=== PATIENT | male | born 1950 | race African-American/Black ===

== ENCOUNTER 2019-03-26 17:05 | Inpatient (IN) ==
[2019-03-26] MEDS ORDERED: NS 1,000 ML ONE (17:16)
[2019-03-26] MEDS ORDERED: NS 1,000 ML IV ONE ×3 (17:18→20:04)
[2019-03-26 17:40] LABS: BE -3.9 mmoll (-3.0-3.0); BLOOD TYPE ARTERIAL; HCO3-(ACT) 21.9 mmoll (20.0-26.0); METHB 1.4 % (0.0-1.5); O2HB 95.2 % (95.0-99.0); PCO2(98.6) 35 mmHg (35-45); PO2(98.6) 84 mmHg (60-100); SAMPLE BLOOD; SAO2 98.7 % (95.0-100.0); THB 9.6 g/dL (11.5-17.4); pH(98.6) 7.38 (7.35-7.45)
[2019-03-26 17:41] LABS: ALLEN TEST YES; MODALITY ROOM AIR
[2019-03-26 17:42] LABS: BASO# 0.08 X1000 (0.0-0.2); BASO% 0.7 % (0.0-0.8); EOS# 0.31 X1000 (0.0-0.7); EOS% 2.6 % (0.0-10.0); HEMATOCRIT 28.5 % (42.0-52.0); HEMOGLOBIN 9.2 g/dL (14.0-18.0); IMM GRAN# 0.04 X1000 (0.0-0.04); IMM GRAN% 0.3 % (0.0-0.5); LYMPH# 1.67 X1000 (1.2-3.4); LYMPH% 13.8 % (20.5-51.1); MCH 27.1 PG (27-31); MCHC 32.3 g/dL (33-37); MCV 84.1 FL (81-99); MONO# 1.04 X1000 (0.11-0.59); MONO% 8.6 % (1.7-9.3); MPV 11.8 FL (7.4-10.4); NEUT# 8.99 X1000 (1.4-6.5); PLT 257 X1000 (130-400); RBC 3.39 XMIL (4.7-6.1); RDW 16.3 % (11.5-14.5); WBC 12.13 X1000 (4.8-10.8)
[2019-03-26 17:53] LABS: INR 1.08; PROTIME 14.6 Seconds (11.0-16.0); PTT 32.2 Seconds (22.3-41.8)
--- NOTE | 2019-03-26 17:56 | EKG Report ---
Test Performed on : 03/26/2019 5:18:23 PM Test Reason : hypotensive altmental Blood Pressure : / mmHG Vent. Rate : 054 BPM Atrial Rate : 054 BPM P-R Int : 134 ms QRS Dur : 094 ms QT Int : 506 ms P-R-T Axes : 074 071 073 degrees QTc Int : 479 ms Sinus bradycardia. Moderate voltage criteria for LVH, may be normal variant Borderline ECG When compared with ECG of 05-OCT-2018 10:14, T wave inversion no longer evident in Inferior leads T wave inversion no longer evident in Lateral leads Unconfirmed Result
--- NOTE | 2019-03-26 17:59 | Diag Imaging Result Doc PS360 ---
EXAM: CT HEAD W/O CONTRAST 03/26/2019 HISTORY: AMS TECHNIQUE: This exam was performed using automated exposure control, adjustment of mA or kV according to patient size, and/or use of iterative reconstruction technique. COMMENT: There is no evidence of mass effect, bleed, or abnormal extra-axial fluid collection. There is encephalomalacia in the lateral basal ganglia region and periventricular white matter of the right frontal lobe. There are tiny lacunae present near the internal capsule posterior limbs bilaterally. Compared to the previous examination of 09/16/2018 there has been no significant change. IMPRESSION: No acute ischemic changes. No evidence of acute disease. Electronically signed by Zan Harding 03/26/2019 5:57 PM
[2019-03-26 18:04] LABS: ALBUMIN 3.8 g/dL (3.5-5.0); CALCIUM 9.1 mg/dL (8.8-10.2); CREATININE 1.9 mg/dL (0.7-1.2); POTASSIUM 4.9 mmol/L (3.5-5.1); TOTAL BILIRUBIN 0.2 mg/dL (0.20-1.00); TOTAL PROTEIN 6.6 g/dL (6.3-8.3)
--- NOTE | 2019-03-26 18:35 | Diag Imaging Result Doc PS360 ---
EXAM: CHEST-PORTABLE 03/26/2019 HISTORY: altered mental hypotensive TECHNIQUE: Erect AP portable at 1803 COMMENT: There is increasing left pleural effusion and some right pleural effusion compared to 10/05/2018. There is also retrocardiac opacity in the left lower lobe. IMPRESSION: Left lower lobe pneumonia. Bilateral pleural effusions more so on the left than the right. Electronically signed by Zan Harding 03/26/2019 6:32 PM
--- NOTE | 2019-03-26 18:53 | PROVIDER DOCUMENTATION ---
This chart was entered by Nakita Gastelum Scribe, acting as scribe for Naveed Pleitez MD. HPI-General Adult - General Source: patient - History of Present Illness -Gen Adult Nature of Presenting Problems: 69 year old male presents to the ER with low blood pressure. Son states that he drank half a beer and began to decline rapidly. Started slurring speech and became lethargic. Onset/Duration: reports: just prior to arrival Timing: reports: still present Associated Symptoms: reports: weakness, other (low blood pressure) <Naveed Pleitez - Last Filed: 03/26/19 18:53> <Jewel Hawkins - Last Filed: 03/26/19 20:03> - General Chief Complaint: Altered Mental Status Stated Complaint: BP LOW Time Seen by Provider: 03/26/19 17:39 Allergies/Adverse Reactions: Patient Allergies Allergy/AdvReac Type Severity Reaction Status Date / Time No Known Allergies Allergy Verified 03/26/19 17:26 Home Medications: Home Medication List Medication Instructions Recorded Confirmed Last Taken Type Aspirin 325 mg PO DAILY 07/08/15 10/05/18 10/06/18 06:15 History Cilostazol 100 mg PO BID 07/08/15 10/06/18 10/06/18 06:15 History Lisinopril/Hydrochlorothiazide 1 each PO DAILY 07/08/15 10/05/18 10/06/18 06:15 History [Lisinopril-Hctz 20-12.5 mg Tab] Nifedipine E.r. [Adalat cc] 30 mg PO DAILY 07/08/15 10/05/18 10/06/18 06:15 History Cyanocobalamin (Vitamin B-12) 1,000 mcg PO TH 10/05/18 10/05/18 10/06/18 06:15 History [Vitamin B-12] Review of Systems - Adult - REVIEW OF SYSTEMS - ADULT Constitutional: denies: chills, fever Eyes: reports: no symptoms reported Ears, Nose, Mouth & Throat: reports: no symptoms reported Cardiovascular: reports: irregular heart rate. denies: chest pain Respiratory: reports: shortness of breath. denies: cough Gastrointestinal: reports: no symptoms reported Genitourinary: reports: no symptoms reported Musculoskeletal: reports: no symptoms reported Integumentary: reports: no symptoms reported Neurological: reports: loss of balance, slurred speech Psychiatric: reports: no symptoms reported Endocrine: reports: no symptoms reported Hematologic/Lymphatic: reports: no symptoms reported Allergic/Immunologic: reports: no symptoms reported All Other Systems: Reviewed and Negative <Naveed Pleitez - Last Filed: 03/26/19 18:53> Past History - Adult - PAST MEDICAL HISTORY-ADULT Review of Records: reports: Nursing Assessment Review, Medications Reviewed Major Childhood Illnesses: reports: denies history Cardiovascular: reports: HTN Respiratory: reports: denies history Gastrointestinal: reports: denies history Genitourinary: reports: denies history Musculoskeletal: reports: denies history Neurological: reports: denies history Psychiatric: reports: denies history Endocrine/Immune: reports: denies history Other Conditions: reports: denies history - PRIOR SURGERIES/PROCEDURES Surgical/Procedure History: reports: CABG - IMMUNIZATION STATUS Childhood Immunizations: See Nurse Assessment Flu Vaccine: See Nurse Assessment - FAMILY HISTORY Family History: reviewed, not pertinent <Naveed Pleitez - Last Filed: 03/26/19 18:53> Physical Exam-General - PHYSICAL EXAM-ADULT Initial Vital Signs Reviewed: Yes - CONSTITUTIONAL General Appearance: mild distress, lethargic, slow to respond - EYES Eyes: PERRL/EOMI, pink conjunctivae - HEAD, EARS, NOSE, MOUTH & THROAT HENMT: normocephalic/atraumatic, moist mucous membranes, normal ENT inspection - NECK Neck: non-tender, normal inspection - RESPIRATORY Respiratory: lungs clear, normal breath sounds - CARDIOVASCULAR Cardiovascular: bradycardia - MUSCULOSKELETAL Back Exam: no CVA tenderness, no vertebral tenderness Extremity: non-tender, normal inspection - SKIN Integumentary: normal color, warm/dry - NEUROLOGIC Neurologic: grossly normal - PSYCHIATRIC Psych/Mental Status: normal mood/affect, normal thought content, normal thought process, oriented x 3 <Naveed Pleitez - Last Filed: 03/26/19 18:53> Progress - PLAN OF CARE/RESULTS Progress/Plan/Lab Results: Vital Signs - 8 hr 03/26/19 17:09 03/26/19 17:19 Temperature 97.6 F Pulse Rate 55 L 57 L Respiratory Rate 18 24 Blood Pressure 66/38 101/45 O2 Sat by Pulse Oximetry 95 93 L Laboratory Results - last 24 hr 03/26/19 17:18 POC Glucose 108 H Orders Category Date Time Status Cardiac Monitoring DIRECTED Care 03/26/19 17:14 Active Finger Stick Blood Sugar (ED) DIRECTED Care 03/26/19 17:14 Active Oxygen Therapy- ED Nursing DIRECTED Care 03/26/19 17:14 Active Saline Loc NOW Care 03/26/19 17:14 Active CHEST-PORTABLE [RAD] Stat Exams 03/26/19 17:[address] HEAD W/O CONTRAST [CT] Stat Exams 03/26/19 17:[address] HEAD W/O CONTRAST [CT] Stat Exams 03/26/19 17:31 Ordered ABG [RESP] Routine Lab 03/26/19 17:14 Ordered CBC WITH ELECTRONIC DIFF [HEME] Stat Lab 03/26/19 17:28 Results CK PROFILE [SP CHEM] Stat Lab 03/26/19 17:28 Received COMPREHENSIVE METABOLIC PANEL [CHEM] Stat Lab 03/26/19 17:28 Received LACTATE, PLASMA [CHEM] Stat Lab 03/26/19 17:28 Received PROTIME WITH INR [COAG] Stat Lab 03/26/19 17:28 Received PTT [COAG] Stat Lab 03/26/19 17:28 Received TROPONIN T Stat Lab 03/26/19 17:28 Received URINALYSIS [URINALYSIS] Stat Lab 03/26/19 17:14 Uncollected 0.9% Sodium Chloride Inj [Ns] 1,000 ml Med 03/26/19 17:16 Discontinued .ROUTE As directed 0.9% Sodium Chloride Inj [Ns] 1,000 ml Med 03/26/19 17:18 Active IV 999 mls/hr Altered Mental Status Stat Oth 03/26/19 17:13 Ordered EKG [EKG] Stat Ther 03/26/19 17:14 Ordered Result Diagrams: 03/26/19 17:28 03/26/19 17:28 - EKG 1 Time of EKG reading by physician:: 17:43 EKG Read and Signed by:: Naveed Pleitez EKG Interpretation (*Must complete 3 of following elements*): Normal Rate: 54 Rhythm: sinus bradycardia QRS: LVH (moderate voltage criteria) Comments: borderline ECG - XRAY 1 XRAY Study: Chest Impression: Abnormal (effusions/cardiomegaly) - CT/MRI 1 CT Study: Head Impression: Normal <Naveed Pleitez - Last Filed: 03/26/19 18:53> - PLAN OF CARE/RESULTS Progress/Plan/Lab Results: Vital Signs - 8 hr 03/26/19 17:09 03/26/19 17:19 Temperature 97.6 F Pulse Rate 55 L 57 L Respiratory Rate 18 24 Blood Pressure 66/38 101/45 O2 Sat by Pulse Oximetry 95 93 L Laboratory Results - last 24 hr 03/26/19 03/26/19 03/26/19 17:18 17:20 17:28 WBC 12.13 H RBC 3.39 L Hgb 9.2 L Hct 28.5 L MCV 84.1 MCH 27.1 MCHC 32.3 L RDW Std Deviation 16.3 H Plt Count 257 MPV 11.8 H Immature Gran % (Auto) 0.3 Neut % (Auto) 74.0 Lymph % (Auto) 13.8 L King % (Auto) 8.6 Eos % (Auto) 2.6 Baso % (Auto) 0.7 Immature Gran # (Auto) 0.04 Neut # (Auto) 8.99 H Lymph # (Auto) 1.67 King # (Auto) 1.04 H Eos # (Auto) 0.31 Baso # (Auto) 0.08 PT INR PTT (Actin FS) Specimen Type ARTERIAL Sample Site R RADIAL pH 7.38 pCO2 35 pO2 84 HCO3 21.9 Base Excess -3.9 L Oxyhemoglobin 95.2 ABG O2 Sat (Calculated) 13.0 L ABG O2 Saturation 98.7 ABG Carboxyhemoglobin 2.10 ABG Methemoglobin 1.4 Kevan Test YES A-a O2 Difference 22.0 Total Hemoglobin 9.6 L Lactate 0.60 Blood Gas Modality ROOM AIR FiO2 % 21.0 Sodium Potassium Chloride Carbon Dioxide Anion Gap BUN Creatinine Estimated GFR/1.73 m2 BUN/Creatinine Ratio Glucose POC Glucose 108 H Calculated Osmolality Calcium Total Bilirubin AST ALT Alkaline Phosphatase Creatine Kinase Troponin T Zox-P-Aopbpfbnnzz Pept Total Protein Albumin Globulin Albumin/Globulin Ratio Plasma Lactate Plasma/Serum Ethyl Alc 03/26/19 03/26/19 03/26/19 17:28 17:28 17:28 WBC RBC Hgb Hct MCV MCH MCHC RDW Std Deviation Plt Count MPV Immature Gran % (Auto) Neut % (Auto) Lymph % (Auto) King % (Auto) Eos % (Auto) Baso % (Auto) Immature Gran # (Auto) Neut # (Auto) Lymph # (Auto) King # (Auto) Eos # (Auto) Baso # (Auto) PT 14.6 INR 1.08 PTT (Actin FS) 32.2 Specimen Type Sample Site pH pCO2 pO2 HCO3 Base Excess Oxyhemoglobin ABG O2 Sat (Calculated) ABG O2 Saturation ABG Carboxyhemoglobin ABG Methemoglobin Kevan Test A-a O2 Difference Total Hemoglobin Lactate Blood Gas Modality FiO2 % Sodium 139 Potassium 4.9 Chloride 106 Carbon Dioxide 19 L Anion Gap 15 BUN 60 H Creatinine 1.9 H Estimated GFR/1.73 m2 35 BUN/Creatinine Ratio 32 Glucose 116 H POC Glucose Calculated Osmolality 295 Calcium 9.1 Total Bilirubin 0.20 AST 11 ALT 5 L Alkaline Phosphatase 117 Creatine Kinase 23 L Troponin T Oea-U-Zkoctpeyger Pept Total Protein 6.6 Albumin 3.8 Globulin 3.0 Albumin/Globulin Ratio 1.0 Plasma Lactate 1.1 Plasma/Serum Ethyl Alc 03/26/19 03/26/19 03/26/19 17:28 17:28 17:28 WBC RBC Hgb Hct MCV MCH MCHC RDW Std Deviation Plt Count MPV Immature Gran % (Auto) Neut % (Auto) Lymph % (Auto) King % (Auto) Eos % (Auto) Baso % (Auto) Immature Gran # (Auto) Neut # (Auto) Lymph # (Auto) King # (Auto) Eos # (Auto) Baso # (Auto) PT INR PTT (Actin FS) Specimen Type Sample Site pH pCO2 pO2 HCO3 Base Excess Oxyhemoglobin ABG O2 Sat (Calculated) ABG O2 Saturation ABG Carboxyhemoglobin ABG Methemoglobin Kevan Test A-a O2 Difference Total Hemoglobin Lactate Blood Gas Modality FiO2 % Sodium Potassium Chloride Carbon Dioxide Anion Gap BUN Creatinine Estimated GFR/1.73 m2 BUN/Creatinine Ratio Glucose POC Glucose Calculated Osmolality Calcium Total Bilirubin AST ALT Alkaline Phosphatase Creatine Kinase Troponin T < 0.010 Daj-F-Sxtdluhgakx Pept 1229 H Total Protein Albumin Globulin Albumin/Globulin Ratio Plasma Lactate Plasma/Serum Ethyl Alc Orders Category Date Time Status Cardiac Monitoring DIRECTED Care 03/26/19 17:14 Active Finger Stick Blood Sugar (ED) DIRECTED Care 03/26/19 17:14 Active Oxygen Therapy- ED Nursing DIRECTED Care 03/26/19 17:14 Active Saline Loc NOW Care 03/26/19 17:14 Active CHEST-PORTABLE [RAD] Stat Exams 03/26/19 17:[address] HEAD W/O CONTRAST [CT] Stat Exams 03/26/19 17:31 Completed ABG [RESP] Routine Lab 03/26/19 17:20 Completed ALCOHOL BLOOD Stat Lab 03/26/19 17:28 Completed CBC WITH ELECTRONIC DIFF [HEME] Stat Lab 03/26/19 17:28 Completed CK PROFILE [SP CHEM] Stat Lab 03/26/19 17:28 Completed COMPREHENSIVE METABOLIC PANEL [CHEM] Stat Lab 03/26/19 17:28 Completed LACTATE, PLASMA [CHEM] Stat Lab 03/26/19 17:28 Completed PROTIME WITH INR [COAG] Stat Lab 03/26/19 17:28 Completed PTT [COAG] Stat Lab 03/26/19 17:28 Completed TROPONIN T Stat Lab 03/26/19 17:[address] W/POSS RFLX CULT [URINALYSIS] Stat Lab 03/26/19 18:36 Uncollected URINALYSIS [URINALYSIS] Stat Lab 03/26/19 17:14 Uncollected URINE DRUG SCREEN PL Stat Lab 03/26/19 18:35 Uncollected bnp [PRO B-NATRIURETIC PEPTIDE] Stat Lab 03/26/19 17:28 Completed 0.9% Sodium Chloride Inj [Ns] 1,000 ml Med 03/26/19 17:16 Discontinued .ROUTE As directed 0.9% Sodium Chloride Inj [Ns] 1,000 ml Med 03/26/19 17:18 Discontinued IV 999 mls/hr CefTRIAXONE [Rocephin] 1 gm Med 03/26/19 19:55 Active 0.9% Sodium Chloride Inj [Ns] 50 ml IV NOW Ns 1000 ml IV Bolus X1 Med 03/26/19 19:58 Ordered 0.9% Sodium Chloride Inj [Ns] 1,000 ml IV 999 mls/hr Altered Mental Status Stat Oth 03/26/19 17:13 Ordered EKG [EKG] Stat Ther 03/26/19 17:14 Draft patient is currently alert and responsive, reports passing out at home today. Denies fever, chest pain,sob. currently has GCS of 15. Result Diagrams: 03/26/19 17:28 03/26/19 17:28 - REASSESSMENT Reassessment #2 Time Reassessed: 19:35 Status: improving Reassessment Comment: blood pressure has improved, noted to have LLL pneumonia on cxr - CONSULTS/PCP/HOSPITALIST Notification #1 *Consult/PCP/Hospitalist*: Dr. Goldstein, hospitalist Time Discussed: 19:55 Consult Disposition: Admit <Jewel Hawkins - Last Filed: 03/26/19 20:03> Departure <Naveed Pleitez - Last Filed: 03/26/19 18:53> - Departure Date of Disposition Decision: 03/26/19 Time of Disposition Decision: 20:02 Certified Medical Emergency: Emergent - Critical Care Note This patient required my direct & personal management of CC.: Yes Total Time (mins): 150 Critical Care Statement: This patient required my direct personal management to treat or rule out processes, the absence of which, could potentiallly result in sudden, clinically significant life or limb threatening deterioration. <Jewel Hawkins - Last Filed: 03/26/19 20:03> - Departure DIAGNOSIS: Pneumonia Qualifiers: Pneumonia type: due to unspecified organism Laterality: left Lung location: lower lobe of lung Qualified Code(s): J18.1 - Lobar pneumonia, unspecified organism Disposition: ADMITTED INPATIENT 09 Condition: Stable Referrals and Follow-Ups: None,PCP [Primary Care Provider] - Attestation - Physician/ WILL Attestation Patient care was provided by Advanced Practice Provider:: No The physician spent face to face time with patient:: Yes Advanced Practice Provider documentation review:: Supervising physician onsite and consulted in the evaluation and care of this patient. The physician did have a face to face encounter with the patient. <Jewel Hawkins - Last Filed: 03/26/19 20:03> This chart was documented by the indicated scribe, (Nakita Gastelum Scribe) and accurately reflects the services I performed and decisions made by me, Naveed Pleitez MD, as attested by the provider's signature.
[2019-03-26] MEDS ORDERED: ROCEPHIN 1 GM in NS 50 ML IV ONE (19:55)
[2019-03-26] MEDS ORDERED: LEVAQUIN 750 MG/D5W 750 MG/150 ML IVPB IV ONE (20:07)
[2019-03-26 20:13] LABS: BILIRUBIN URINE NEGATIVE (NEGATIVE); BLOOD URINE NEGATIVE (NEGATIVE); CLARITY CLEAR (CLEAR); COLOR YELLOW; GLUCOSE URINE NEGATIVE (NEGATIVE); KETONE URINE NEGATIVE (NEGATIVE); LEUKOCYTES URINE NEGATIVE (NEGATIVE); NITRITE URINE NEGATIVE (NEGATIVE); PROTEIN URINE TRACE mg/dL (NEGATIVE); SP GRAVITY URINE 1.015; UROBILINOGEN URINE NORMAL
[2019-03-26 20:16] LABS: URINE SOURCE CATH
[2019-03-26 20:18] LABS: URINE BACTERIA 1+ /HFP; URINE CAST NONE SEEN /LPF; URINE CRYSTAL NONE SEEN /HPF; URINE EPITHELIAL CELLS >10 /HPF (<10); URINE RBC <10 /HPF (<10); URINE WBC <10 /HPF (<10); URINE YEAST NONE SEEN /HPF
[2019-03-26 20:46] LABS: UR AMPHETAMINES QUAL NONE DETECTED (NONE DETECT); UR BARBITUATES QUAL NONE DETECTED (NONE DETECT); UR BENZODIAZEPIN QUAL NONE DETECTED (NONE DETECT); UR CANNABINOIDS QUAL NONE DETECTED (NONE DETECT); UR COCAINE QUAL NONE DETECTED (NONE DETECT); UR METHADONE QUAL NONE DETECTED (NONE DETECT); UR METHAMPHETAMINE QUAL NONE DETECTED (NONE DETECT); UR OPIATES QUAL NONE DETECTED (NONE DETECT); UR OXYCODONE QUAL NONE DETECTED (NONE DETECT); UR PCP QUAL NONE DETECTED (NONE DETECT); UR PROPOXYPHENE QUAL NONE DETECTED (NONE DETECT); UR TCA QUAL NONE DETECTED (NONE DETECT)
[2019-03-27] MEDS ORDERED: DESYREL PO PRN (08:14)
[2019-03-27] MEDS: PLAVIX PO SCH (08:37)
[2019-03-27] MEDS: LOPRESSOR PO SCH ×2 (08:37→20:49)
[2019-03-27] MEDS: ASPIRIN EC PO SCH (08:38)
[2019-03-27 09:39] LABS: BASO# 0.04 X1000 (0.0-0.2); BASO% 0.5 % (0.0-0.8); EOS# 0.22 X1000 (0.0-0.7); EOS% 2.7 % (0.0-10.0); HEMATOCRIT 29.8 % (42.0-52.0); HEMOGLOBIN 9.4 g/dL (14.0-18.0); IMM GRAN# 0.02 X1000 (0.0-0.04); IMM GRAN% 0.2 % (0.0-0.5); LYMPH# 1.72 X1000 (1.2-3.4); MCH 26.6 PG (27-31); MCHC 31.5 g/dL (33-37); MCV 84.4 FL (81-99); MONO# 0.96 X1000 (0.11-0.59); MONO% 11.7 % (1.7-9.3); MPV 12.1 FL (7.4-10.4); NEUT# 5.24 X1000 (1.4-6.5); NEUT% 63.9 % (42.2-75.2); PLT 249 X1000 (130-400); RBC 3.53 XMIL (4.7-6.1); RDW 16.4 % (11.5-14.5)
[2019-03-27 10:03] LABS: ALBUMIN 3.4 g/dL (3.5-5.0); CALCIUM 9.1 mg/dL (8.8-10.2); CREATININE 1.7 mg/dL (0.7-1.2); MAGNESIUM 1.7 mg/dL (1.5-2.7); POTASSIUM 4.7 mmol/L (3.5-5.1); TOTAL BILIRUBIN 0.4 mg/dL (0.20-1.00); TOTAL PROTEIN 6.8 g/dL (6.3-8.3)
--- NOTE | 2019-03-27 10:58 | HISTORY AND PHYSICAL ---
PRIMARY CARE PROVIDER: No one. COAL CRUSHER OPERATOR: Dr. Ji. CARDIAC SURGEON: Dr. Matt Martinez out of [facility]. CHIEF COMPLAINT: Slurred speech, lethargic and low blood pressure. HISTORY OF PRESENT ILLNESS: Mr. Matt Mosher is a 69-year-old male. He has a medical history of severe aortic stenosis and regurgitation now status post AVR tissue valve on 11/14/2018 performed at [facility] by Dr. Matt Martinez. History of chronic diastolic heart failure, hypertension, hyperlipidemia and is a current smoker. Presents after yesterday evening, his son was with him. The patient had about 3 sips of beer and developed slurred speech, and became lethargic. The patient admits to being short of breath for at least 2 to 3 weeks. He denies cough, fevers or chest pains. Essentially, he has no other symptoms. No lightheadedness or dizziness. He states he has been taking Lasix once every 3 days. His last dose was yesterday morning. He has essentially had no complications since his surgery in October. He does state that when he went for a follow-up check up that they had mentioned he had a collection in the left lower part of his lung, but was felt to be fluid related, and that is when he was started on the Lasix every 3 days. He is now presenting with a left lower lobe pneumonia and elevated white blood cell count, but no cough, fever or productive cough. No chest pain. Only has complaints of shortness of breath, and he is tolerating room air. He was hypotensive on presentation which explains the lethargy and slurred speech. He was as low as 66/38. He had a head CT, which was negative. We will admit him and do IV Levaquin for treatment of his left lower lobe pneumonia. PAST MEDICAL HISTORY: 1. Severe aortic stenosis and aortic regurgitation with replacement by tissue valve on 11/14/[address] Brewer at that time. 2. Chronic diastolic heart failure. 3. Hypertension. 4. Hyperlipidemia. 5. Smoker. 6. Edema. 7. Intermittent claudication. 8. CKD stage 3. PAST SURGICAL HISTORY: 1. In 1984, AVR tissue valve by Dr. Brewer at [facility]. 2. AVR tissue valve by Dr. Matt Martinez 11/14/2018. No other surgeries. SOCIAL HISTORY: A 1 to 1 and half pack per day smoker since the age of 14. He quit smoking on 11/13 of this year the day before surgery only an occasional beer, and essentially when his son comes to visit for which he is just not a very heavy beer drinker. Denies any illicit drug use. FAMILY HISTORY: Mother had a stroke. His father was healthy. ALLERGIES: No known drug allergies. HOME MEDICATIONS: 1. Atorvastatin calcium 20 mg p.o. nightly. 2. Aspirin enteric-coated 81 mg p.o. daily. 3. Plavix 75 mg p.o. daily. 4. Trazodone 50 mg p.o. nightly p.r.n. 5. Lasix 20 mg p.o. He says he takes it about once every 3 day, but looks like this is taken on days and Saturdays. 6. Lisinopril hydrochlorothiazide 1 tab p.o. daily. 7. Mobic 7.5 mg p.o. daily. 8. Metoprolol tartrate 12.5 mg p.o. twice daily. 9. Sulindac 150 mg p.o. twice daily. REVIEW OF SYSTEMS: Fourteen point review of systems are complete and all were negative except for those mentioned above HPI. PHYSICAL EXAMINATION: VITAL SIGNS: Temperature 98.2 degrees, heart rate 66, respiratory rate 18, blood pressure 117/55, O2 saturation 98% on room air, 144 pounds, and BMI is 19.6. GENERAL: Mr. Matt Mosher is a 69-year-old male. He is in no acute distress. He is able to answer questions appropriately. HEENT: Atraumatic, normocephalic. Pupils equal, round, and reactive to light. Extraocular movements intact. Mucous membranes are dry. Dentition is poor. NECK: Trachea midline. CARDIOVASCULAR: S1, S2. Regular rate and rhythm. No rubs, gallops, or murmurs. No lower extremity edema. +2 dorsalis and radial pulses. Negative JVD or carotid bruit. PULMONARY: Clear to auscultation. Bilateral breath sounds. No accessory muscle use or work of breathing noted. ABDOMEN: Soft, nontender, and nondistended. Positive bowel sounds x4. EXTREMITIES: Moves all extremities equally. Decreased range of motion. NEUROLOGIC: Alert and oriented x3. Follows commands. Sensory is intact. SKIN: Warm, dry, and intact. LABORATORY DATA: White blood cells on admission 12,000 and is now down to 8000. Hemoglobin and hematocrit 9 and 29, and platelet count 249,000. Sodium 139, potassium 4.7, BUN 56, and creatinine is 1.7. Glucose 85, calcium 9.1, magnesium 1.7, bilirubin 0.40. AST 11. ALT 5. ProBNP was 1229, albumin 3.4. Serum lactate 1.1. Urinalysis trace protein with 1+ bacteria. Urine drug screen negative. Alcohol level 0. IMAGING: Chest x-ray left lower lobe pneumonia. Bilateral pleural effusions left greater than right. Head CT no acute findings. EKG sinus bradycardia, rate 54, and QTc 479. ASSESSMENT/PLAN: 1. Left lower lobe pneumonia. Community-acquired. He will be on IV Levaquin. No issues with oxygenation. He does not have a cough. 2. Bilateral pleural effusions left greater than right. He is on Lasix at home. He received 2 L of fluid along with 1/3 L at 125 mL an hour totaling 3 L of fluids. We will have to monitor for any signs of respiratory complications or fluid buildup. He is on Lasix at home. He takes 20 mg on Wednesday, and Saturdays. Currently, this is on hold, but we may need to consider resuming it. He did receive a fluid boluses due to dehydration and hypotension. 3. Hypotension. History of hypertension that has resolved after he received IV fluids. 4. Metoprolol 12.5 mg p.o. twice a day resumed. 5. Hyperlipidemia. Continue statin. 6. Tobacco abuse. Cessation discussed. 7. Acute kidney injury, now chronic kidney disease stage 3, prerenal secondary to dehydration or hypoperfusion due to the hypotension but has improved since yesterday. We will monitor daily. Dictated by DEWAYNE Munoz for Mason Goldstein MD cc: DEWAYNE Munoz MD
[2019-03-27] MEDS: PATIENT'S OWN MED PO SCH ×2 (11:35→20:45)
[2019-03-27] MEDS: LEVAQUIN 750 MG/D5W 750 MG/150 ML IVPB IV SCH (20:45)
[2019-03-27] MEDS: LIPITOR PO SCH (20:49)
--- NOTE | 2019-03-27 22:45 | HISTORY AND PHYSICAL ---
SUBJECTIVE: The patient was seen and examined by myself. Full note dictated and discussed with the nurse practitioner. The patient was admitted to the hospital secondary to having hypotension in the ER with blood pressures in the 70s and 80s. He was given IV fluid bolus. Currently his pressures are in the low 100s. He notes that he is feeling much better. Denies any fevers or chills currently. We are going to admit him to the hospital. Continue fluids and antibiotics. Continue to treat his pneumonia. Further orders as needed. cc: Mason Goldstein MD
[2019-03-28 06:08] LABS: BASO# 0.02 X1000 (0.0-0.2); BASO% 0.3 % (0.0-0.8); EOS# 0.31 X1000 (0.0-0.7); HEMATOCRIT 28.5 % (42.0-52.0); HEMOGLOBIN 9.1 g/dL (14.0-18.0); IMM GRAN# 0.02 X1000 (0.0-0.04); IMM GRAN% 0.3 % (0.0-0.5); LYMPH# 1.56 X1000 (1.2-3.4); LYMPH% 20.3 % (20.5-51.1); MCH 26.8 PG (27-31); MCHC 31.9 g/dL (33-37); MCV 83.8 FL (81-99); MONO# 1.06 X1000 (0.11-0.59); MONO% 13.8 % (1.7-9.3); MPV 11.6 FL (7.4-10.4); NEUT# 4.72 X1000 (1.4-6.5); NEUT% 61.3 % (42.2-75.2); PLT 259 X1000 (130-400); RDW 16.3 % (11.5-14.5); WBC 7.69 X1000 (4.8-10.8)
[2019-03-28 06:31] LABS: AGAP 9; ALBUMIN 3.5 g/dL (3.5-5.0); ALKALINE PHOSPHATASE 110 U/L (32-122); BUN 48 mg/dL (8-22); CALCIUM 9.2 mg/dL (8.8-10.2); CHLORIDE 112 mmol/L (98-107); COSMO 292; CREATININE 1.8 mg/dL (0.7-1.2); ESTIMATED GFR 37; GLUCOSE 98 mg/dL (70-104); GOT 9 U/L (10-34); GPT < 5 U/L (10-44); MAGNESIUM 1.6 mg/dL (1.5-2.7); POTASSIUM 4.6 mmol/L (3.5-5.1); SODIUM 140 mmol/L (136-145); TCO2 19 mmol/L (25-35); TOTAL PROTEIN 6.6 g/dL (6.3-8.3)
[2019-03-28] MEDS: LOPRESSOR PO SCH ×2 (09:47→20:32)
[2019-03-28] MEDS: PATIENT'S OWN MED PO SCH ×2 (09:47→20:32)
[2019-03-28] MEDS: PLAVIX PO SCH (09:47)
[2019-03-28] MEDS: ASPIRIN EC PO SCH (09:47)
--- NOTE | 2019-03-28 14:24 | PROGRESS NOTE ---
DATE: 03/28/2019 SUBJECTIVE: Patient reports feeling much better. Denies any fever or chills. OBJECTIVE: Vital Signs: Temperature 98.5 degrees, heart rate 61, respiratory rate 16, blood pressure 124/57. O2 saturation 100% on room air. General Examination: This is a chronically ill- appearing, 69-year-old male, lying in bed, in no acute distress. Cardiovascular: S1, S2 heard. No murmurs, gallops, or rubs. Regular rate and rhythm. Respiratory: Clear bilaterally to auscultation. No work of breathing or using accessory muscles. Abdomen: Soft, nontender to palpation. Bowel sounds present. No organomegaly. Extremities: No clubbing, cyanosis, or edema. Peripheral pulses present in both legs. Neurological: Patient alert and oriented x3. Moves 4 extremities. LABORATORY DATA: Reviewed and white cell count is back to normal and BMP shows creatinine of 1.8 which is his baseline. ASSESSMENT AND PLAN: 1. Left lower lobe pneumonia, community-acquired. We will continue with current antibiotic management. Blood pressure is much better, so we will continue with the same management. 2. Bilateral pleural effusion, left greater than the right. The patient will continue with Lasix. He is breathing better with no oxygen supplementation needed. At this point, we will continue with the same management. 3. Hypotension, resolved. 4. Hyperlipidemia. We will continue with statin. 5. Chronic kidney disease stage 3. The patient's creatinine is around baseline. 6. Disposition. If blood pressure continues to be fine, I think this patient may be discharged with Levaquin for 10 days and follow up with his primary care physician in a week. cc: Huber Bryan MD
[2019-03-28] MEDS: LEVAQUIN 750 MG/D5W 750 MG/150 ML IVPB IV SCH (20:32)
[2019-03-28] MEDS: LIPITOR PO SCH (20:32)
[2019-03-29 07:02] LABS: BASO# 0.04 X1000 (0.0-0.2); BASO% 0.5 % (0.0-0.8); EOS# 0.33 X1000 (0.0-0.7); HEMOGLOBIN 9.2 g/dL (14.0-18.0); IMM GRAN# 0.01 X1000 (0.0-0.04); IMM GRAN% 0.1 % (0.0-0.5); LYMPH# 1.62 X1000 (1.2-3.4); LYMPH% 19.5 % (20.5-51.1); MCH 26.7 PG (27-31); MCHC 31.7 g/dL (33-37); MCV 84.1 FL (81-99); MONO# 1.09 X1000 (0.11-0.59); MONO% 13.1 % (1.7-9.3); MPV 12.4 FL (7.4-10.4); NEUT% 62.8 % (42.2-75.2); PLT 256 X1000 (130-400); RBC 3.45 XMIL (4.7-6.1); RDW 16.5 % (11.5-14.5); WBC 8.29 X1000 (4.8-10.8)
[2019-03-29 07:05] LABS: POTASSIUM 4.8 mmol/L (3.5-5.1)
[2019-03-29 07:06] LABS: ALBUMIN 3.4 g/dL (3.5-5.0); CALCIUM 8.9 mg/dL (8.8-10.2); CREATININE 1.6 mg/dL (0.7-1.2); MAGNESIUM 1.6 mg/dL (1.5-2.7); TOTAL BILIRUBIN 0.2 mg/dL (0.20-1.00); TOTAL PROTEIN 6.6 g/dL (6.3-8.3)
[2019-03-29 07:38] VITALS: BP 108/52
[2019-03-29] MEDS: ASPIRIN EC PO SCH (09:23)
[2019-03-29] MEDS: PLAVIX PO SCH (09:23)
[2019-03-29] MEDS: LOPRESSOR PO SCH (09:23)
[2019-03-29] MEDS: PATIENT'S OWN MED PO SCH (09:23)
--- NOTE | 2019-03-30 03:46 | DISCHARGE SUMMARY ---
ADMISSION DATE: 03/27/2019 DISCHARGE DATE: 03/29/2019 ADMISSION DIAGNOSES: 1. Left lower lobe pneumonia. 2. Bilateral pleural effusions left greater than right. 3. Hypotension. 4. Hyperlipidemia. 5. Tobacco abuse. 6. Acute kidney injury on chronic kidney disease stage 3. DISCHARGE DIAGNOSES: 1. Community-acquired left lower lobe pneumonia. 2. Bilateral pleural effusions left greater than right. 3. Hypotension, resolved. 4. Hyperlipidemia. 5. Chronic kidney disease stage 3. CONSULTATIONS: None. SURGERIES AND PROCEDURES: None. HOSPITAL COURSE: Mr. Matt Mosher is a 69-year-old male with a medical history of severe aortic stenosis and regurgitation, now status post AVR tissue valve in October of 2018 with history of chronic diastolic heart failure. Apparently had developed a slurred speech, became lethargic. Was brought to the emergency department. On further questioning, he had been having some shortness breath for at least 2 to 3 weeks. Denied cough, fever or chest pain. No other symptoms. No lightheadedness or dizziness. He apparently takes Lasix 3 days a week. He did mention that at a follow-up checkup after his surgery they had mentioned that there was an area of collection in the left lung but they felt like it was fluid and that is when he was started on Lasix. He presented with leukocytosis and a left lower lobe pneumonia, but no fever or cough. Lethargy and slurred speech resolved. He apparently was hypotensive and those symptoms resolved after his blood pressure improved with IV fluids. He was started on IV Levaquin and he will go home on p.o. Levaquin. Leukocytosis resolved. His CKD stage 3, which was baseline when he left heel. He only had a chest x-ray when he was admitted, no repeats. His CT was negative when he was admitted. DISCHARGE VITAL SIGNS: Temperature 98.6 degrees, heart rate 62, respiratory rate 18, blood pressure 108/52, O2 saturation 99% on room air. DISCHARGE LABORATORY DATA: White blood cells 8000, hemoglobin 9, hematocrit 29, platelet count 256,000. Sodium 140, potassium 4.8, BUN 40, creatinine is 1.6, glucose 97, calcium 8.9, magnesium 1.6, bilirubin 0.20, AST 10, ALT 5, albumin 3.4. PERTINENT IMAGING: Chest x-ray on the admission date was left lower lobe pneumonia, bilateral pleural effusions left greater than right, and head CT no acute ischemic changes, no evidence of acute disease. An EKG, sinus bradycardia, rate was 54, QTc was 479. DISCHARGE MEDICATIONS: 1. Atorvastatin 20 mg p.o. nightly. 2. Aspirin enteric-coated 81 mg p.o. daily. 3. Plavix 75 mg p.o. daily. 4. Trazodone 50 mg p.o. nightly p.r.n. 5. Lasix 20 mg p.o. 3 times a week. 6. Mobic 7.5 mg p.o. daily. 7. Metoprolol tartrate 12.5 mg p.o. twice daily. 8. Cefdinir is actually what he will go home on 300 mg p.o. twice daily for 7 days. DISCHARGE DIET: Heart healthy. DISCHARGE ACTIVITY: As tolerated. DISCHARGE INSTRUCTIONS: Follow up with your primary care provider in the next 1 to 2 weeks. Be sure to complete your antibiotic even if you start to feel better. If your condition changes, contact physician and/or return to the emergency department. Changes may include, but are not limited to, shortness of breath, increased fatigue, excessive bleeding, unexplained weight loss or gain, unimaginable pain, signs or symptoms of infection. PHYSICIAN FOLLOWUP: None. He actually needs to find a primary care provider or whoever it is that prescribes him his medications go back to them. DISCHARGE DISPOSITION: Home. Dictated by DEWAYNE Munoz for Huber Bryan MD Addendum: Patient seen and examined by myself. Agree with DEWAYNE note. It reflects my assessment and plan. Patient is being discharged in stable condition. He needs to find out a PCP and a list of PCP accepting new patients will be provided to him. cc: DEWAYNE Munoz MD [facility]
== END 2019-03-29 12:10 | disposition home or self-care (01) | DRG 194 ==
LOC: P.ED 17:05 → SUATTDRO 20:54 → P.MEDSURG 20:54
PROVIDERS: ATTEND Internal Medicine
CPT/HCPCS: 36415; 70450; 71010; 71045; 80053; 80104; 80301; 80305; 80307; 80320; 81001; 82055; 82550; 82805; 82948; 83605; 83735; 83880; 84484; 85025; 85610; 85730; 87040; 93005; 94761; 96360; 96361; 99285; 99291; A9270; G0431; G0434; G0477; G0480; G6040; J1956; J7030; XXXXX